=== PATIENT | female | born 1995 | race African-American/Black ===

== ENCOUNTER 2023-04-04 18:16 | Emergency (ER) | payer MEDICAID, OTHER ==
[~2023-04-04] VITALS: Ht 167.6 cm; Wt 65.0 kg
[2023-04-04 18:21] VITALS: PULSE 83
[2023-04-04 18:28] VITALS: BP 117/76; RESP 16; TEMP 98.5; O2SAT 100
[2023-04-04 18:51] LABS: CLARITY URINE CLEAR (CLEAR); COLOR URINE YELLOW (YELLOW); GLUCOSE URINE NEGATIVE (NEGATIVE); KETONES URINE NEGATIVE (NEGATIVE); LEUKOCYTE ESTERASE URINE NEGATIVE (NEGATIVE); NITRITE URINE NEGATIVE (NEGATIVE); OCCULT BLOOD URINE 2+ (NEGATIVE); PH URINE 6.5 (4.5-8.0); PROTEIN URINE NEGATIVE (NEGATIVE); SPECIFIC GRAVITY URINE 1.014 (1.005-1.030); UROBILINOGEN URINE 0.2 E.U./dL (0.2-1.0)
[2023-04-04 18:53] LABS: BACTERIA URINE NONE SEEN; YEAST URINE NONE SEEN
[2023-04-04 19:11] LABS: SQUAMOUS EPITHELIAL CELL URINE FEW /lpf (RARE/1+)
== END 2023-04-04 23:39 | disposition left against medical advice (07) ==
LOC: ER 18:16
DX: N89.8 Other specified noninflammatory disorders of vagina (principal); Z53.21 Procedure and treatment not carried out due to patient leaving prior to being seen by health care provider
CPT/HCPCS: 81003; 81025; 99281

== ENCOUNTER 2023-06-12 20:30 | Emergency (ER) | payer MEDICAID ==
[~2023-06-12] VITALS: Ht 157.5 cm; Wt 62.0 kg
[2023-06-12 20:36] VITALS: O2SAT 98
[2023-06-13] MEDS ORDERED: KETOROLAC 15MG/ML VIAL IM ONE (00:30)
[2023-06-13] MEDS ORDERED: ONDANSETRON HCL 4MG TABLET PO ONE (00:30)
[2023-06-13] MEDS ORDERED: FLUORESCEIN SODIUM 1MG/STRIP EACHEYE ONE (02:45)
[2023-06-13] MEDS ORDERED: KETOROLAC 60MG/2ML VIAL IM STA (02:49)
[2023-06-13 03:17] LABS: PROTHROMBIN TIME 10.7 sec (9.6-11.0)
[2023-06-13 03:23] LABS: BASOPHILS % 0.6 % (0.0-2.0); EOSINOPHILS % 3.1 % (0.0-5.0); HEMATOCRIT. 39.9 % (36.0-48.0); HEMOGLOBIN. 13.4 g/dL (12.0-16.0); LYMPHOCYTES % 39.4 % (20.0-50.0); MEAN CORPUSCULAR HEMOGLOBIN 29.7 pg (28.0-32.0); MEAN CORPUSCULAR HGB CONC 33.5 g/dL (31.0-37.0); MEAN CORPUSCULAR VOLUME 88.7 fL (81.0-99.0); MEAN PLATELET VOLUME 8.2 fl (7.4-10.4); MONOCYTES % 9.1 % (2.0-8.0); NEUTROPHILS % 47.8 % (40.0-76.0); PLATELET 265 x1000/uL (130-400); RED CELL DISTRIBUTION WIDTH 13.9 % (11.6-14.6); WHITE BLOOD COUNT 8.9 x1000/uL (4.5-11.0)
[2023-06-13 04:08] LABS: ALANINE AMINOTRANSFERASE 15 IU/L (10-49); ALBUMIN 4.5 g/dL (3.2-4.8); ASPARTATE AMINOTRANSFERASE 17 IU/L (<34); BILIRUBIN TOTAL 0.4 mg/dL (0.1-1.0); CALCIUM 9.3 mg/dL (8.7-10.4); CARBON DIOXIDE 24 mEq/L (21-32); CHLORIDE 105 mEq/L (98-107); CREATININE 0.7 mg/dL (0.6-1.0); GLUCOSE 95 mg/dL (70-105); POTASSIUM 3.5 mEq/L (3.5-5.1); PROTEIN TOTAL 7.8 g/dL (6.0-8.3); SODIUM 139 mEq/L (136-145); UREA NITROGEN BLOOD 9 mg/dL (9-23)
[2023-06-13] MEDS ORDERED: ONDA4TAB50 MT (04:26)
[2023-06-13] MEDS ORDERED: ACET-2708 MT (04:26)
[2023-06-13 04:35] VITALS: BP 132/81; PULSE 61; RESP 20; TEMP 98.7
== END 2023-06-13 04:35 | disposition home or self-care (01) ==
LOC: ER 20:30
DX: S00.93XA Contusion of unspecified part of head, initial encounter (principal); S30.1XXA Contusion of abdominal wall, initial encounter; J45.909 Unspecified asthma, uncomplicated; Y08.89XA Assault by other specified means, initial encounter; Y93.89 Activity, other specified; Y92.89 Other specified places as the place of occurrence of the external cause; Y99.8 Other external cause status
CPT/HCPCS: 99285; 70450; 81025; 76705; 80053; 83690; 85025; 85610; 36415; 96372; Q0162; J1885